=== PATIENT | female | born 1975 | race Caucasian/White ===

== ENCOUNTER 2018-09-14 12:30 | Observation (INO) ==
--- NOTE | 2018-09-13 13:56 | MH ---
cc: Laiht Chand MD DATE OF ADMISSION: 09/14/2018 ADMITTING DIAGNOSES: Menorrhagia, dysmenorrhea, uterine fibroids and a right ovarian mass. HISTORY OF PRESENT ILLNESS: The patient is a 42-year-old, white female, para 0-0-2-0, who presented for evaluation on 08/09/2018 with a history of ovarian cysts with menorrhagia and dysmenorrhea. Her vaginal ultrasound from 07/18/2018 had shown a uterus measuring 7.7 cm with fibroids and the right ovary was enlarged to about 6.1 cm with a cyst. Her CA-125 was normal. Her Pap smear was normal. She is now admitted for surgical evaluation. PAST SURGICAL HISTORY: None. MEDICATIONS: Zaleplon 10 mg. ALLERGIES: NONE. TRANSFUSIONS: None. OBSTETRIC HISTORY: One EPP, 1 spontaneous . 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 She is . Alcohol, tobacco and drugs are none. REVIEW OF SYSTEMS: Negative. FAMILY HISTORY: Noncontributory. PHYSICAL EXAMINATION: GENERAL: She is a well-nourished, well-developed white female. VITAL SIGNS: Stable. HEENT: Normal. CHEST: Clear. HEART: Regular rate. BREASTS: Symmetrical. ABDOMEN: Benign. PELVIC: Normal external genitalia and BUS. Vagina is normal. Cervix normal. Uterus is normal size, shape. Uterus is about 12 weeks' size. Right adnexa cystic. ASSESSMENT: As above. PLAN: She is now admitted for a D and C, frozen section, laparoscopy with a probable LASH/BSO versus possible MENG/BSO. While in the office, I explained the procedures, the risks, benefits and complications and surgical menopause, and the patient would like to proceed MD MALA De La Torre/jl , 01:17 PM , 01:23 PM
[2018-09-14] MEDS ORDERED: ceFAZolin 1 GM Premix Inj 1 GM/50 ML FROZ.PIGGY IV.SIG ONE (13:14)
--- NOTE | 2018-09-14 13:30 | XR ---
EXAM DATE: 09/14/2018 1:20 PM EST AGE/SEX: 42 years / Female INDICATIONS: Evaluate for pneumonia, pneumothorax, or communicable disease. CLINICAL DATA: This is the patient's initial encounter. Patient reports that signs and symptoms have been present for 1 day and indicates a pain score of 0/10. MEDICAL/SURGICAL HISTORY: None. None. COMPARISON: No prior exams available for comparison. FINDINGS: A single AP view of the chest demonstrates the lungs to be symmetrically aerated without evidence of mass, infiltrate or effusion. The cardiomediastinal contours are unremarkable. Osseous structures a re intact. CONCLUSION: 1. No acute cardiopulmonary disease. Electronically signed by: Jam Jacobson MD 09/14/2018 1:29 PM EST
[2018-09-14] MEDS ORDERED: Famotidine PF Inj 20 MG/2 ML Vial ONE (14:33)
[2018-09-14] MEDS ORDERED: Sugammadex Inj 200 MG/2 ML Vial IV.PUSH ONE (14:49)
[2018-09-14] MEDS ORDERED: Lidocaine PF 1% Inj 5 ML Syringe OTHER ONE (15:08)
[2018-09-14] MEDS ORDERED: Phenylephrine/NS 1000 MCG/10ML Syringe IV.PUSH ONE (15:08)
[2018-09-14] MEDS ORDERED: Ketorolac Inj 30 MG/ML (IVP) Vial IM ONE (15:08)
[2018-09-14] MEDS ORDERED: Ketorolac Inj 30 MG/ML (IVP) Vial IV.PUSH ONE (15:08)
[2018-09-14] MEDS ORDERED: Metoprolol Tartrate 25 MG Tablet PO ONE (15:22)
[2018-09-14] MEDS ORDERED: Chlorhexidine Gluconate 2% 1 Pack (2 Cloths) TOPICAL ONE (15:22)
[2018-09-14] MEDS: Famotidine PF Inj 20 MG/2 ML Vial IV.PUSH SCH ×2 (15:34→15:42)
[2018-09-14] MEDS ORDERED: Sodium Chlor 0.9% Inj 500 ML IV.SIG SCH (16:00)
[2018-09-14] MEDS ORDERED: HYDROmorphone PF Inj 1 MG/ML Ampul IV.PUSH PRN (16:48)
[2018-09-14] MEDS ORDERED: Bupivacaine Liposomal PF 1.3% Inj 20 ML Vial ONE (16:55)
[2018-09-14] MEDS ORDERED: *morphine SULFATE 4 MG/ML PERIprocedure ONLY ONE ×4 (17:37→18:35)
[2018-09-14] MEDS ORDERED: fentaNYL Citrate Inj 100 MCG/2 ML Ampul ONE ×2 (17:38→17:56)
[2018-09-14] MEDS ORDERED: Morphine Inj 4 MG/ML Vial ONE (17:39)
[2018-09-14] MEDS ORDERED: *HYDROmorphone PF Inj 1 MG/ML Ampul PERIprocedural Use ONLY ONE (18:51)
[2018-09-14] MEDS ORDERED: HYDROmorphone PF Inj 1 MG/ML Ampul IV.PUSH ONE (19:15)
[2018-09-14] MEDS: Ketorolac Inj 30 MG/ML (IVP) Vial IV.PUSH SCH ×2 (19:50→23:20)
--- NOTE | 2018-09-14 20:18 | MP ---
cc: Laith Chand MD DATE OF OPERATION: 09/14/2018 PREOPERATIVE DIAGNOSES: 1. Menorrhagia. 2. Dysmenorrhea. 3. Uterine fibroids. 4. Right adnexal mass. POSTOPERATIVE DIAGNOSES: 1. Menorrhagia. 2. Dysmenorrhea. 3. Uterine fibroids. 4. Right adnexal mass. PROCEDURE PERFORMED: Dilation and curettage, frozen section followed by a [facility] BSO. ANESTHESIA: General, ET. SURGEON: Laith Chand MD CHIEF MATE: VANDANA Morales ESTIMATED BLOOD LOSS: About 200 mL. FLUIDS: 200 mL crystalloid. OBJECTIVE FINDINGS: Following induction of adequate general endotracheal anesthesia, the patient was prepped and draped supine on the operating table in dorsal lithotomy position in usual sterile fashion, with the bladder being drained via Jernigan conization. Exam yielded about 12-week size uterus. Adnexa nonpalpable with her weight. The cervix was exposed with handheld retractors, after placement of Jernigan catheter. Anterior lip of the cervix was grasped with single-tooth tenaculum. Cervix, uterus sounded to 9 cm. Cervix and dilated to #18 Hanks dilator. Endocervical curettings were obtained for permanent section. Endometrial for frozen. The vaginal instruments were now removed. The dowel machine operator's gloves were changed. The abdomen was opened with a 3 cm curving infraumbilical incision using the knife to cut down through the skin to the fascia. The fascia opened transversely. Peritoneum entered bluntly with finger dissection and the GelPort placed. Laparoscope was inserted. A 5 port was placed in left lower quadrant, Air Seal right lower quadrant. Pelvic contents revealed a large paratubal cyst on the right side about 7-8 cm. Normal-appearing ovaries. Uterus had fibroids about 12-week size. Appendix was normal. Liver edge, normal. Cul-de-sacs were clear. Working first on the left, Harmonic scalpel was used to take the left uteroovarian pedicle, left round ligament, left broad ligament, left side bladder flap and left uterine vessels; on the right side, the large paratubal cyst and right ovary were taken by taking the ovarian vessels with the Harmonic scalpel, the right mesosalpinx and the right utero-ovarian pedicle, and excising this right tubo-ovarian complex through a pouch. The right broad ligament was now taken with Harmonic scalpel, right bladder flap and right uterine vessels, and the Harmonic scalpel was used to amputate the fundus from the cervix and the fundus was extracted in the pouch. The left tube and ovary were now removed with Harmonic scalpel and extracted intact through the GelPort site. Irrigation was now performed. No bleeding was evident. The ureters were inspected for bilateral peristalsis. There was no bleeding with low pressure test. The operative sites were now coated with Surgiflo over the left ovarian pedicle and then the whole operative site coated with Evicel. No bleeding was evident. The scope was then removed and the GelPort removed. GelPort wound closed with running 2-0 Vicryl for peritoneum. A running locking stitch of 0 Vicryl corner to midline and tied, subcutaneous with running 3-0 Vicryl. The scope was now reinserted, the lower port sites, and used to check the GelPort site, which was well closed with no entrapment of tissue or bleeding. The scope was now removed, gas was allowed to escape. All ports were removed. The umbilical incision closed with a running 3-0 Monocryl subcuticular and the small wounds with 3-0 Monocryl subcuticular silk. Dermabond applied. The patient was to receive a TAP block for anesthesia and then go to recovery room. All counts were correct. MD MALA De La Torre/kelsey , 06:32 PM , 06:42 PM DAVID
[2018-09-14] MEDS: Docusate Sodium 100 MG Capsule PO SCH (20:19)
[2018-09-14] MEDS ORDERED: Zolpidem Tartrate 5 MG Tablet PO PRN (21:00)
[2018-09-14 22:24] LABS: Hematocrit 39.5 % (35.0-46.0); Hemoglobin 13.5 gm/dL (11.6-15.3); Mean Corpuscular HGB Conc 34.2 % (32.0-36.0); Mean Corpuscular Hemoglobin 29.8 pg (27.0-34.0); Mean Corpuscular Volume 87.1 fL (80.0-100.0); Mean Platelet Volume 9.2 fL (7.0-11.0); Platelet Count 197 th/mm3 (150-450); Red Blood Count 4.53 mil/mm3 (4.00-5.30); Red Cell Distribution Width 15.6 % (11.6-17.2)
[2018-09-15] MEDS: Ketorolac Inj 30 MG/ML (IVP) Vial IV.PUSH SCH ×2 (05:02→11:20)
[2018-09-15 05:47] VITALS: O2SAT 95
[2018-09-15 07:56] LABS: Baso % (Auto) 0.3 % (0.0-2.0); Hemoglobin 13.3 gm/dL (11.6-15.3); Lymph # (Auto) 1.1 th/mm3 (1.0-4.8); Mean Corpuscular HGB Conc 33.1 % (32.0-36.0); Mean Corpuscular Hemoglobin 29.8 pg (27.0-34.0); Mean Corpuscular Volume 89.9 fL (80.0-100.0); Mean Platelet Volume 8.5 fL (7.0-11.0); Mono # (Auto) 0.5 th/mm3 (0.0-0.9); Mono % (Auto) 3.3 % (0.0-8.0); Neut # (Auto) 12.4 th/mm3 (1.8-7.7); Neut % (Auto) 88.4 % (16.0-70.0); Platelet Count 249 th/mm3 (150-450); Red Blood Count 4.45 mil/mm3 (4.00-5.30); Red Cell Distribution Width 15.3 % (11.6-17.2)
[2018-09-15 08:13] LABS: Calcium 8.2 mg/dL (8.5-10.1); Carbon Dioxide 25.8 meq/L (21.0-32.0); Potassium 3.9 meq/L (3.5-5.1)
[2018-09-15] MEDS: Pantoprazole Sodium 20 MG DR Tablet PO SCH ×2 (08:18→08:35)
[2018-09-15] MEDS: Docusate Sodium 100 MG Capsule PO SCH (08:18)
[2018-09-15 11:44] VITALS: BP 134/69; PULSE 79; RESP 20; TEMP 98.1
== END 2018-09-15 13:15 | disposition home or self-care (01) ==
LOC: HSDI 12:30 → HSDC 12:30 → H1EA 19:15
PROVIDERS: ADMIT Obstetrics & Gynecology; ATTEND Obstetrics & Gynecology